=== PATIENT | male | born 1960 | race Caucasian/White ===

== ENCOUNTER 2018-02-13 19:10 | Emergency (ER) | payer SELFPAY ==
[2018-02-13] MEDS ORDERED: TORAdol 30 mg Injection IM ONE (19:56)
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
[2018-02-13] MEDS ORDERED: TORAdol 30 mg Injection ONE (20:00)
[2018-02-13 20:58] VITALS: BP 165/106; PULSE 68; O2SAT 99
[2018-02-13] MEDS ORDERED: NORCO 5/325 MG PO ONE (21:47)
[2018-02-13] MEDS ORDERED: NORCO 5/325 MG ONE (21:51)
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
== END 2018-02-13 22:01 | disposition home or self-care (01) ==
LOC: ED 19:10
DX: R51 Headache (principal); M54.2 Cervicalgia; M54.5 Low back pain; V53.5XXA Driver of pick-up truck or van injured in collision with car, pick-up truck or van in traffic accident, initial encounter; Z79.899 Other long term (current) drug therapy; I10 Essential (primary) hypertension; E78.00 Pure hypercholesterolemia, unspecified
CPT/HCPCS: 70450; 72125; 72131; 73030; 96372; 99285; J1885; A9270-GY

== ENCOUNTER 2019-10-19 09:28 | Emergency (ER) | payer OTHER ==
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
[2019-10-19 10:26] LABS: Absolute Neutrophil Ct (ANC) 4.69 (1.4-6.9); BASOPHIL % 0.3 % (0.0-0.4); Basophil (Absolute #) 0.02 (0-0.4); Eosinophil % 8.1 % (0.00-5.0); Eosinophil (Absolute #) 0.61 (0-0.5); Hematocrit 41.8 % (42-50); Hemoglobin 14.4 gm/dl (12.5-18.0); Lymphocyte (Absolute #) 1.61 (1.0-4.6); Lymphocytes % 21.4 % (24.0-44.0); Mean Cell Volume 90.5 fl (78-100); Mean Corpuscular Hemoglobin 31.2 pg (26-32); Mean Corpuscular Hgb Concent. 34.4 g/dl (32-36); Mean Platelet Volume 9.6 fl (7.5-11.0); Monocyte (Absolute #) 0.61 (0.0-1.3); Monocytes % 8.1 % (0.0-12.0); Neutrophil % 62.1 % (36.0-66.0); Platelet Count 176 K/mm3 (150-450); Red Blood Count 4.62 M/mm3 (4.1-5.6); Red Cell Distribution Width 12.7 % (11.5-14.0); White Blood Count 7.5 K/mm3 (4.0-10.5)
[2019-10-19 10:30] LABS: ALBUMIN 4.3 g/dL (3.5-5.0); ALKALINE PHOSPHATASE 98 U/L (38-126); BLOOD UREA NITROGEN 18 mg/dL (9-20); CHLORIDE 104 mmol/L (98-107); Calcium 9.6 mg/dL (8.4-10.2); Carbon Dioxide 29 mmol/L (22-30); Creatinine 1 1.01 mg/dL (0.66-1.25); Glucose 105 mg/dL (74-106); Potassium 4.9 mmol/L (3.5-5.1); SGOT/AST 22 U/L (17-59); SGPT/ALT 18 U/L (0-50); SODIUM 138 mmol/L (137-145); Total Protein 7.7 g/dL (6.3-8.2)
[2019-10-19 10:48] VITALS: BP 145/98; O2SAT 100
[2019-10-19 11:02] VITALS: PULSE 76
--- NOTE | 2019-10-19 19:55 | XRAY ---
Indication: Cough and sore throat. Comparison: December 23, 2018. Portable chest again demonstrates normal heart and lungs with incidental calcified granulomas. Bony thorax intact again with mild degenerative changes. No new/acute findings.
== END 2019-10-19 10:59 | disposition home or self-care (01) ==
LOC: ED 09:28
DX: R05 Cough (principal); J02.8 Acute pharyngitis due to other specified organisms; U07.1 COVID-19
CPT/HCPCS: 36415; 71045; 80053; 85025; 99284; U0003

== ENCOUNTER 2022-06-07 17:23 | Emergency (ER) | payer OTHER ==
--- NOTE | 2022-06-07 18:37 | ERPHSYRPT ---
- History of Present Illness Time Seen by Provider: 06/07/22 18:47 Source: patient Exam Limitations: no limitations Patient Subjective Stated Complaint: PT states "I slipped on the steps and slid down 3 stairs. My back on the right side hurts and my right forearm." Triage Nursing Assessment: Pt presented alert and oriented X 3, skin pwd. Pt ambulates with an upright steady gait, able to speak in clear full sentences. Pt has bruising, swelling, and abraison noted to right forerm, abrasion noted to back of right shoulder down to lower ribs on right side, tenderness noted. Physician History: Patient is a 62-year-old male presents to our ED for evaluation status post slip and fall. Patient was descending 3 metal steps. Patient slipped and fell onto his back. Patient complains of pain at both forearms and right ribs. Injury occurred prior to arrival. No neck pain. Cervical spine cleared clinically. No BHT or LOC. Fall was mechanical. Fall was not associated with any neuro cardiovascular symptomology. No associated chest pain or shortness of breath. No nausea vomiting or diaphoresis. No numbness tingling or weakness. Patient's pain is mild to moderate in intensity. Patient declined pain medication. Patient's significant other at bedside. They voiced no other complaints or concerns at this time. Portions of this note were created with voice recognition technology. There may be grammatical, spelling, punctuation or sound alike errors Timing/Duration: today Severity: moderate Modifying Factors: Improves With: movement Associated Symptoms: denies symptoms Allergies/Adverse Reactions: No Known Drug Allergies Allergy (Verified 10/19/19 09:31) Home Medications: Amlodipine Besylate 5 mg [Norvasc 5 mg] 1 tab PO DAILY 02/13/18 [History] Atorvastatin Calcium 40 mg PO DAILY 02/13/18 [History] Triamterene/Hydrochlorothiazid [Triamterene-Hctz 37.5-25 mg Tb] 1 tab PO DAILY 02/13/18 [History] Hx Tetanus, Diphtheria Vaccination/Date Given: No Hx Influenza Vaccination/Date Given: No Hx Pneumococcal Vaccination/Date Given: No Immunizations Up to Date: No Travel Risk - International Travel Have you traveled outside of the country in past 3 weeks: No - Coronavirus Screening Are you exhibiting any of the following symptoms?: No Close contact with a COVID-19 positive Pt in past 14-21 Days: No - Vaccine Status Have you recieved a Covid-19 vaccination: No - Review of Systems Constitutional: No Symptoms, No Fever, No Chills Eyes: No Symptoms Ears, Nose, & Throat: No Symptoms Respiratory: No Symptoms, No Cough, No Dyspnea Cardiac: No Symptoms, No Chest Pain, No Edema, No Syncope Abdominal/Gastrointestinal: No Symptoms, No Abdominal Pain, No Nausea, No Vomiting, No Diarrhea Genitourinary Symptoms: No Symptoms, No Dysuria Musculoskeletal: No Symptoms, No Back Pain, No Neck Pain Skin: No Symptoms, No Rash Neurological: No Symptoms, No Dizziness, No Focal Weakness, No Sensory Changes Psychological: No Symptoms Endocrine: No Symptoms Hematologic/Lymphatic: No Symptoms Immunological/Allergic: No Symptoms All Other Systems: Reviewed and Negative - Past Medical History Pertinent Past Medical History: Yes Neurological History: No Pertinent History ENT History: No Pertinent History Cardiac History: No Pertinent History, High Cholesterol, Hypertension Respiratory History: No Pertinent History Endocrine Medical History: No Pertinent History Musculoskeletal History: No Pertinent History GI Medical History: Hernia History: No Pertinent History Psycho-Social History: No Pertinent History Male Reproductive Disorders: No Pertinent History Other Medical History: Fx to 3rd and 4th lumbar - Past Surgical History Past Surgical History: Yes Neuro Surgical History: No Pertinent History Cardiac: No Pertinent History Respiratory: No Pertinent History Gastrointestinal: No Pertinent History Genitourinary: No Pertinent History Musculoskeletal: Orthopedic Surgery Male Surgical History: No Pertinent History Other Surgical History: left elbow, roselyn knee surgery - Social History Smoking Status: Never smoker Exposure to second hand smoke: No Drug Use: none Patient Lives Alone: No - Nursing Vital Signs Nursing Vital Signs: Initial Vital Signs Temperature 98.6 F 06/07/22 17:28 Pulse Rate 66 06/07/22 17:28 Respiratory Rate 20 06/07/22 17:28 Blood Pressure 172/104 06/07/22 17:28 O2 Sat by Pulse Oximetry 99 06/07/22 17:28 Pain Scale Pain Intensity 4 - Physical Exam General Appearance: no apparent distress, alert Eye Exam: PERRL/EOMI, eyes nml inspection Ears, Nose, Throat Exam: normal ENT inspection, TMs normal, pharynx normal, moist mucous membranes Neck Exam: normal inspection, non-tender, supple, full range of motion Respiratory Exam: normal breath sounds, lungs clear, No respiratory distress Cardiovascular Exam: regular rate/rhythm, normal heart sounds, normal peripheral pulses Gastrointestinal/Abdomen Exam: soft, normal bowel sounds, No tenderness, No mass Back Exam: normal inspection, normal range of motion, No CVA tenderness, No vertebral tenderness Extremity Exam: normal inspection, normal range of motion, pelvis stable Neurologic Exam: alert, oriented x 3, cooperative, normal mood/affect, nml cerebellar function, nml station & gait, sensation nml, No motor deficits Skin Exam: normal color, warm, dry, No rash Lymphatic Exam: No adenopathy SpO2 Interpretation: normal SpO2: 99 O2 Delivery: Room Air - Course Nursing assessment & vital signs reviewed: Yes - Radiology Exams Forearm X-ray Interpretation: Interpreted by me (No fracture dislocations.) Other X-ray Interpretation: Interpreted by me (Left forearm, no fracture dislocations. Soft tissue swelling) - CT Exams Chest CT Interpretation: Tele-radiologist Report (No comps. Minimal right base calcified pleural thickening. 5 mm hepatic cyst and old granulomatous disease otherwise normal chest. Also small hiatal hernia) Ordered Tests: Active Orders 24 hr Category Date Time Status CHEST WITHOUT CONTRAST [CT] Stat Exams 06/07/22 17:49 Taken FOREARM Stat Exams 06/07/22 17:50 Taken FOREARM Stat Exams 06/07/22 17:50 Taken - Progress Progress: improved Progress Note: 8-year-old male with mechanical fall. Physical exam revealed soft tissue swelling bilateral forearms. X-rays of both forearms negative for fracture. No dislocations. CT chest negative for rib fracture. Patient declined pain medication. Patient reassessed. Vital stable. Will discharge home. Patient agrees to follow-up with his primary care doctor within 48 hours for reevaluation. Portions of this note were created with voice recognition technology. There may be grammatical, spelling, punctuation or sound alike errors Complexity of problem addressed is low. Acute uncomplicated. No critical care time. Patient received 2 x-rays and a CT scan of chest. Patient served as independent historian. Patient's significant other at bedside. Patient's significant other contributed to HPI. Complexity of data reviewed and analyzed is moderate. X-rays independently reviewed by Dr. Way. Risk of complication and or risk morbidity/mortality of patient management is minimal. Patient declined pain medication. Patient will be discharged home. Plan of care discussed with patient. Plan of care established via shared decision making model. Vital stable. No social determinants of health complica ting patient's follow-up. Patient/significant other voiced no other complaints or concerns at this time. Portions of this note were created with voice recognition technology. There may be grammatical, spelling, punctuation or sound alike errors 06/07/22 19:26 Counseled pt/family regarding: diagnosis, need for follow-up, rad results - Departure Departure Disposition: Home Clinical Impression: Fall, Forearm contusion, Right lung base calcified pleural plaqui, 5 mm hepatic cyst, Old granulomatous disease, Small hiatal hernia Condition: Stable Critical Care Time: No Referrals: DOCTOR,NO FAMILY [Primary Care Provider] - Follow up/PCP as directed JEAN CLAUDE KAT MD [ACTIVE STAFF] - Follow up/PCP as directed Additional Instructions: Discharge/Care Plan LO GUERRA was seen on 06/07/22 in the Emergency Room. The patient was counseled regarding Diagnosis,Lab results, Imaging studies, need for follow up and when to return to the Emergency Room. Prescriptions given: Discharge Note I have spoken with the patient and/or caregivers. I have explained the patient's condition, diagnosis and treatment plan based on the information available to me at this time. I have answered the patient's and/or caregiver's questions and addressed any concerns. The patient and/or caregivers have as good understanding of the patient's diagnosis, condition and treatment plan as can be expected at this point. The vital signs have been stable. The patient's condition is stable and appropriate for discharge from the emergency department. The patient will pursue further outpatient evaluation with the primary care physician or other designated or consulting physician as outlined in the discharge instructions. The patient and/or caregivers are agreeable to this plan of care and follow-up instructions have been explained in detail. The patient and/or caregivers have received these instruction. The patient/and or caregivers are aware that any significant change in condition or worsening of symptoms should prompt an immediate return to this or the closest emergency department or call 911.
[2022-06-07 19:36] VITALS: BP 158/100; PULSE 65; O2SAT 98
--- NOTE | 2022-06-08 08:33 | XRAY ---
Indication: Right rib pain following fall. Multiple contiguous axial images obtained through the chest without contrast. Comparison: None Lungs demonstrates minimal bilateral dependent atelectasis, very minimal right posterior gutter calcified pleural plaquing and left lower lobe bullae. No suspicious pulmonary mass/nodule, infiltrate, effusion, or pneumothorax. Heart not enlarged. Aorta is normal in course and caliber. Small mediastinal and left hilar calcified nodes. No pathologic mediastinal lymphadenopathy. Small hiatal hernia. Bony thorax intact with mild degenerative changes throughout the spine. Limited upper abdomen demonstrates 5 mm hepatic cyst and previous cholecystectomy. Impression: 1. Chronic findings including left lower lobe bullae, right base calcified pleural plaquing, hiatal hernia, degenerative spondylosis, hepatic cyst, and old granulomatous disease. 2. Remaining CT chest without contrast exam is negative.
--- NOTE | 2022-06-08 08:43 | XRAY ---
Indication: Soft tissue swelling following fall. Comparison: None 2 view right forearm demonstrates mild proximal anterior medial soft tissue swelling. No other bony, articular, or soft tissue abnormalities.
--- NOTE | 2022-06-08 08:43 | XRAY ---
Indication: Soft tissue swelling following fall. Comparison: None 2 view left forearm demonstrates mild distal lateral soft tissue swelling. No other bony, articular, or soft tissue abnormalities.
== END 2022-06-07 19:36 | disposition home or self-care (01) ==
LOC: ED 17:23
DX: S50.12XA Contusion of left forearm, initial encounter (principal); S50.11XA Contusion of right forearm, initial encounter; W10.9XXA Fall (on) (from) unspecified stairs and steps, initial encounter; J92.9 Pleural plaque without asbestos; K76.89 Other specified diseases of liver; D71 Functional disorders of polymorphonuclear neutrophils; K44.9 Diaphragmatic hernia without obstruction or gangrene; R07.81 Pleurodynia; E78.5 Hyperlipidemia, unspecified; I10 Essential (primary) hypertension; Z79.899 Other long term (current) drug therapy; Z28.310 Unvaccinated for COVID-19
CPT/HCPCS: 71250; 73090; 99283

== ENCOUNTER 2024-05-27 16:22 | Emergency (ER) | payer OTHER ==
[2024-05-27 17:00] VITALS: TEMP 98.9
--- NOTE | 2024-05-27 17:06 | ERPHSYRPT ---
- History of Present Illness Time Seen by Provider: 05/27/24 17:04 Source: patient Exam Limitations: no limitations Patient Subjective Stated Complaint: pt states that he began to have pain to his left groin pain. pt states that the pain is where he had a hernia repair Triage Nursing Assessment: pt ambulated into the er; pt is axo x4; c/o left gr oin pain; pt states 8/10 pain to left groin that radiates to left testicle; no swelling present to left testicle; skin PDW; no respiratory distress present; hypertensive Physician History: 64-year-old male presents to our ED for evaluation of acute onset left lower quadrant pain. Patient reports the pain radiates into his left testicle. Pain started just prior to arrival. No history of kidney stones no trauma no fever no nausea no vomiting no blood in stool. Symptoms are moderate in intensity. Patient rates his pain 8 out of 10 at its worst. Patient requesting pain medication at this time. Significant other at bedside. They voiced no other complaints or concerns at this time. Timing/Duration: today Severity: moderate Modifying Factors: Improves With: nothing Associated Symptoms: denies symptoms Allergies/Adverse Reactions: No Known Drug Allergies Allergy (Verified 05/27/24 16:53) Home Medications: Ezetimibe 10 mg [Zetia 10 MG] 10 mg PO DAILY 05/27/24 [History] Hx Tetanus, Diphtheria Vaccination/Date Given: No Hx Influenza Vaccination/Date Given: No Hx Pneumococcal Vaccination/Date Given: No Travel Risk - International Travel Have you traveled outside of the country in past 3 weeks: No - Emerging Infectious Disease Are you exhibiting symptoms associated with any current EIDs: No - Review of Systems Constitutional: No Symptoms, No Fever, No Chills Eyes: No Symptoms Ears, Nose, & Throat: No Symptoms Respiratory: No Symptoms, No Cough, No Dyspnea Cardiac: No Symptoms, No Chest Pain, No Edema, No Syncope Abdominal/Gastrointestinal: No Symptoms, No Abdominal Pain, No Nausea, No Vomiting, No Diarrhea Genitourinary Symptoms: No Symptoms, No Dysuria Musculoskeletal: No Symptoms, No Back Pain, No Neck Pain Skin: No Symptoms, No Rash Neurological: No Symptoms, No Dizziness, No Focal Weakness, No Sensory Changes Psychological: No Symptoms Endocrine: No Symptoms Hematologic/Lymphatic: No Symptoms Immunological/Allergic: No Symptoms All Other Systems: Reviewed and Negative - Past Medical History Pertinent Past Medical History: Yes Neurological History: No Pertinent History ENT History: No Pertinent History Cardiac History: No Pertinent History, High Cholesterol, Hypertension Respiratory History: No Pertinent History Endocrine Medical History: No Pertinent History Musculoskeletal History: No Pertinent History GI Medical History: Hernia History: No Pertinent History Psycho-Social History: No Pertinent History Male Reproductive Disorders: No Pertinent History Other Medical History: Fx to 3rd and 4th lumbar - Past Surgical History Past Surgical History: Yes Neuro Surgical History: No Pertinent History Cardiac: No Pertinent History Respiratory: No Pertinent History Gastrointestinal: No Pertinent History Genitourinary: No Pertinent History Musculoskeletal: Orthopedic Surgery Male Surgical History: No Pertinent History Other Surgical History: left elbow, roselyn knee surgery - Social History Smoking Status: Never smoker Exposure to second hand smoke: No Drug Use: none - Social Determinants of Health Will the patient participate in the screening: Yes Do you worry about a steady place to live?: No Do you have any problems with any of the following?: No known problems In the past 12 months,have you had to go without utilities?: No Transportation Issues: No Has anyone in your support network made you feel unsafe?: No Have you or anyone in your house had to go w/o enough food: No - Nursing Vital Signs Nursing Vital Signs: Initial Vital Signs Temperature 98.9 F 05/27/24 16:54 Pulse Rate 82 05/27/24 16:54 Respiratory Rate 18 05/27/24 16:54 Blood Pressure 176/109 05/27/24 16:54 O2 Sat by Pulse Oximetry 99 05/27/24 16:54 Pain Scale Pain Intensity 5 - Physical Exam General Appearance: no apparent distress, alert Eye Exam: PERRL/EOMI, eyes nml inspection Ears, Nose, Throat Exam: normal ENT inspection, TMs normal, moist mucous membran es Neck Exam: normal inspection, full range of motion Respiratory Exam: normal breath sounds, lungs clear, No respiratory distress Cardiovascular Exam: regular rate/rhythm, normal heart sounds, normal peripheral pulses Gastrointestinal/Abdomen Exam: soft, normal bowel sounds, other (Tenderness to palpation left lower quadrant.), No tenderness, No mass Back Exam: normal inspection, normal range of motion, No CVA tenderness, No vertebral tenderness Extremity Exam: normal inspection, normal range of motion, pelvis stable Neurologic Exam: alert, oriented x 3, cooperative, normal mood/affect, nml cerebellar function, nml station & gait, sensation nml, No motor deficits Skin Exam: normal color, warm, dry, No rash Lymphatic Exam: No adenopathy SpO2 Interpretation: normal SpO2: 99 O2 Delivery: Room Air - Course Nursing assessment & vital signs reviewed: Yes - Radiology Ultrasound Exam Scrotal Ultrasound: tele radiology report (Bilateral hydrocele. No obvious hernia seen with Valsalva.) Ordered Tests: Active Orders 24 hr Category Date Time Status IV Insertion STAT Care 05/27/24 17:02 Active ABDOMEN AND PELVIS W/0 CONTRAS [CT] Stat Exams 05/27/24 17:03 Taken TESTICLE [US] Stat Exams 05/27/24 17:04 Taken CBC W DIFF Stat Lab 05/27/24 17:30 Completed CMP Stat Lab 05/27/24 17:30 Completed TROPONIN Q4H Lab 05/27/24 17:30 Completed TROPONIN Q4H Lab 05/27/24 21:15 Ordered TROPONIN Q4H Lab 05/28/24 01:15 Ordered UA W/RFX UR CULTURE Stat Lab 05/27/24 17:30 Completed Medication Summary Generic Name Dose Route Start Last Admin Trade Name Freq PRN Reason Stop Dose Admin Levofloxacin/Dextrose 500 mg in 100 mls @ 100 mls/hr 05/27/24 19:07 Levofloxacin 500mg/100ml D5w IV 05/27/24 20:06 STAT STA Metronidazole 500 mg in 100 mls @ 200 mls/hr 05/27/24 19:07 Flagyl 500 Mg Ivpb IV 05/27/24 19:36 STAT STA Discontinued Medications Generic Name Dose Route Start Last Admin Trade Name Freq PRN Reason Stop Dose Admin Sodium Chloride 1,000 mls @ 999 mls/hr 05/27/24 17:02 05/27/24 18:44 Sodium Chloride 0.9% 1000 Ml IV 05/27/24 18:02 Infused .Q1H1M STA Infusion Sodium Chloride Confirm 05/27/24 17:35 Sodium Chloride 0.9% 1000 Ml Administered 05/27/24 17:36 Dose 1,000 mls @ ud .ROUTE .STK-MED ONE Ketorolac Tromethamine 30 mg 05/27/24 17:02 05/27/24 17:38 Ketorolac Tromethamine 30 Mg/Ml Inj IV 05/27/24 17:03 30 mg STAT ONE Administration Ketorolac Tromethamine Confirm 05/27/24 17:35 Ketorolac Tromethamine 30 Mg/Ml Inj Administered 05/27/24 17:36 Dose 30 mg .ROUTE .STK-MED ONE Lab/Rad Data: Laboratory Result Diagrams 05/27/24 17:30 05/27/24 17:30 Laboratory Results 05/27/24 05/27/24 05/27/24 Range/Units 17:30 17:30 17:30 WBC 11.5 H (4.23-9.07) x10^3/uL RBC 4.66 (4.63-6.08) x10^6/uL Hgb 14.4 (13.7-17.5) g/dL Hct 40.3 (40.1-51.0) % MCV 86.5 (79.0-92.2) fL MCH 30.9 (25.7-32.2) pg MCHC 35.7 (32.3-36.5) g/dL RDW 11.9 (11.6-14.4) % Plt Count 209 (163-337) x10^3/uL MPV 9.3 L (9.4-12.4) fL Gran % 77.9 H (34.0-67.9) % Immature Gran % (Auto) 0.4 (0.001-0.429) % Nucleat RBC Rel Count 0.0 (0.00-0.2) % Eos # (Auto) 0.10 (0.04-0.54) x10^3/uL Immature Gran # (Auto) 0.05 H (0.001-0.031) x10^3u/L Absolute Lymphs (auto) 1.60 (1.32-3.57) x10^3/uL Absolute Monos (auto) 0.76 (0.30-0.82) x10^3/uL Absolute Nucleated RBC 0.00 (0.00-0.012) x10^3u/L Lymphocytes % 13.9 L (21.8-53.1) % Monocytes % 6.6 (5.3-12.2) % Eosinophils % 0.9 (0.8-7.0) % Basophils % 0.3 (0.2-1.2) % Absolute Granulocytes 8.95 H (1.78-5.38) x10^3/uL Basophils # 0.03 (0.01-0.08) x10^3/uL Sodium 138 (135-145) mmol/L Potassium 4.6 (3.5-5.1) mmol/L Chloride 103 (98-107) mmol/L Carbon Dioxide 24 (22-30) mmol/L Anion Gap 16.1 H (5-15) MEQ/L BUN 19 (9-20) mg/dL Creatinine 0.92 (0.66-1.25) mg/dL Estimated GFR 94.1 ML/MIN Glucose 91 (74-106) mg/dL Calcium 9.4 (8.4-10.2) mg/dL Total Bilirubin 1.20 (0.2-1.3) mg/dL AST 31 (17-59) U/L ALT 22 (0-50) U/L Alkaline Phosphatase 81 (38-126) U/L Troponin I < 0.012 (0.000-0.033) ng/mL Serum Total Protein 7.7 (6.3-8.2) g/dL Albumin 4.7 (3.5-5.0) g/dL Urine Color (Yellow) Urine Appearance (Clear) Urine pH (4.6-8.0) Ur Specific [place] (1.005-1.030) Urine Protein (Negative) Urine Glucose (UA) (Negative) mg/dL Urine Ketones (Negative) Urine Blood (Negative) Urine Nitrite (Negative) Urine Bilirubin (Negative) Urine Urobilinogen (0.2) mg/dL Ur Leukocyte Esterase (Negative) U Hyaline Cast (Auto) (0-2) /LPF Urine Microscopic RBC (0-5) /HPF Urine Microscopic WBC (0-5) /HPF Ur Epithelial Cells (None Seen) /HPF Urine Bacteria (None Seen) /HPF Urine Culture Reflexed (NO) 05/27/24 Range/Units 17:30 WBC (4.23-9.07) x10^3/uL RBC (4.63-6.08) x10^6/uL Hgb (13.7-17.5) g/dL Hct (40.1-51.0) % MCV (79.0-92.2) fL MCH (25.7-32.2) pg MCHC (32.3-36.5) g/dL RDW (11.6-14.4) % Plt Count (163-337) x10^3/uL MPV (9.4-12.4) fL Gran % (34.0-67.9) % Immature Gran % (Auto) (0.001-0.429) % Nucleat RBC Rel Count (0.00-0.2) % Eos # (Auto) (0.04-0.54) x10^3/uL Immature Gran # (Auto) (0.001-0.031) x10^3u/L Absolute Lymphs (auto) (1.32-3.57) x10^3/uL Absolute Monos (auto) (0.30-0.82) x10^3/uL Absolute Nucleated RBC (0.00-0.012) x10^3u/L Lymphocytes % (21.8-53.1) % Monocytes % (5.3-12.2) % Eosinophils % (0.8-7.0) % Basophils % (0.2-1.2) % Absolute Granulocytes (1.78-5.38) x10^3/uL Basophils # (0.01-0.08) x10^3/uL Sodium (135-145) mmol/L Potassium (3.5-5.1) mmol/L Chloride (98-107) mmol/L Carbon Dioxide (22-30) mmol/L Anion Gap (5-15) MEQ/L BUN (9-20) mg/dL Creatinine (0.66-1.25) mg/dL Estimated GFR ML/MIN Glucose (74-106) mg/dL Calcium (8.4-10.2) mg/dL Total Bilirubin (0.2-1.3) mg/dL AST (17-59) U/L ALT (0-50) U/L Alkaline Phosphatase (38-126) U/L Troponin I (0.000-0.033) ng/mL Serum Total Protein (6.3-8.2) g/dL Albumin (3.5-5.0) g/dL Urine Color Yellow (Yellow) Urine Appearance Clear (Clear) Urine pH 5.5 (4.6-8.0) Ur Specific [place] 1.025 (1.005-1.030) Urine Protein Negative (Negative) Urine Glucose (UA) Negative (Negative) mg/dL Urine Ketones Trace A (Negative) Urine Blood Moderate A (Negative) Urine Nitrite Negative (Negative) Urine Bilirubin Negative (Negative) Urine Urobilinogen 1.0 A (0.2) mg/dL Ur Leukocyte Esterase Negative (Negative) U Hyaline Cast (Auto) NONE SEEN (0-2) /LPF Urine Microscopic RBC 6-10 A (0-5) /HPF Urine Microscopic WBC 0-2 (0-5) /HPF Ur Epithelial Cells None Seen (None Seen) /HPF Urine Bacteria None Seen (None Seen) /HPF Urine Culture Reflexed NO (NO) - Progress Progress: improved Progress Note: 64-year-old male presents to our ED for evaluation of left lower quadrant pain. Physical exam reveals tenderness to the left lower quadrant. Patient also complained of pain to his left testicle. Ultrasound left testicle reveals hy drocele bilaterally. CT abdomen pelvis reveals a mild diverticulitis. Patient received a dose of Levaquin and Flagyl in our ED. Patient declined hospitalization. Patient preferred outpatient management. A prescription for Cipro and Flagyl forwarded to patient's pharmacy. Patient agrees to follow-up with his primary care doctor within 48 hours for reevaluation. Portions of this note were created with voice recognition technology. There may be grammatical, spelling, punctuation or sound alike errors 05/27/24 19:13 Complexity of problem addressed is moderate acute complicated no critical care time. Complex of data reviewed and analyzed is moderate. Test ordered test reviewed results analyzed and correlated clinically with history and physical exam. Risk of complication and or risk of morbidity/mortality of patient management is moderate. A prescription for Cipro Flagyl Curtis and Toradol forwarded to patient's pharmacy. Vital stable. Time spent to discharge patient is approximately 15 minutes. Plan of care established for shared decision making. No social determinants of health present to impede follow-up. Portions of this note were created with voice recognition technology. There may be grammatical, spelling, punctuation or sound alike errors 05/27/24 19:18 Counseled pt/family regarding: lab results, diagnosis, need for follow-up, rad results - Departure Departure Disposition: Home Clinical Impression: Hydrocele, Diverticulitis, Hematuria Condition: Stable Critical Care Time: No Referrals: ARMIN WEBB MD [Primary Care Provider] - Follow up/PCP as directed Additional Instructions: Discharge/Care Plan LO GUERRA was seen on 05/27/24 in the Emergency Room. The patient was counseled regarding Diagnosis,Lab results, Imaging studies, need for follow up and when to return to the Emergency Room. Prescriptions given: Discharge Note I have spoken with the patient and/or caregivers. I have explained the patient's condition, diagnosis and treatment plan based on the information available to me at this time. I have answered the patient's and/or caregiver's questions and addressed any concerns. The patient and/or caregivers have as good understanding of the patient's diagnosis, condition and treatment plan as can be expected at this point. The vital signs have been stable. The patient's condition is stable and appropriate for discharge from the emergency department. The patient will pursue further outpatient evaluation with the primary care physician or other designated or consulting physician as outlined in the discha rge instructions. The patient and/or caregivers are agreeable to this plan of care and follow-up instructions have been explained in detail. The patient and/or caregivers have received these instruction. The patient/and or caregivers are aware that any significant change in condition or worsening of symptoms should prompt an immediate return to this or the closest emergency department or call 911. Prescriptions: Hydrocodone/APAP 5/325 [Curtis 5/325 mg] 1 each PO Q6H PRN PRN #10 tablet MDD 4 PRN Reason: Pain Ciprofloxacin [Cipro 500 MG] 500 mg PO BID 7 Days #14 tablet Metronidazole 500 mg [Flagyl 500 MG] 500 mg PO TID 7 Days #21 tablet Ketorolac Trometh 10 mg Tab [TORAdol 10 MG TABLET] 10 mg PO TID 5 Days #15 tablet
[2024-05-27 17:34] LABS: Absolute Neutrophil Ct (ANC) 8.95 x10^3/uL (1.78-5.38); BASOPHIL % 0.3 % (0.2-1.2); Basophil (Absolute #) 0.03 x10^3/uL (0.01-0.08); Eosinophil % 0.9 % (0.8-7.0); Hematocrit 40.3 % (40.1-51.0); Hemoglobin 14.4 g/dL (13.7-17.5); IMMATURE GRAN # 0.05 x10^3u/L (0.001-0.031); IMMATURE GRAN % 0.4 % (0.001-0.429); Lymphocytes % 13.9 % (21.8-53.1); Mean Cell Volume 86.5 fL (79.0-92.2); Mean Corpuscular Hemoglobin 30.9 pg (25.7-32.2); Mean Corpuscular Hgb Concent. 35.7 g/dL (32.3-36.5); Mean Platelet Volume 9.3 fL (9.4-12.4); Monocyte (Absolute #) 0.76 x10^3/uL (0.30-0.82); Monocytes % 6.6 % (5.3-12.2); Neutrophil % 77.9 % (34.0-67.9); Platelet Count 209 x10^3/uL (163-337); Red Blood Count 4.66 x10^6/uL (4.63-6.08); Red Cell Distribution Width 11.9 % (11.6-14.4); White Blood Count 11.5 x10^3/uL (4.23-9.07)
[2024-05-27] MEDS ORDERED: TORAdol 30 mg Injection ONE (17:35)
[2024-05-27] MEDS ORDERED: Sodium Chloride 0.9% 1000 ML 1,000 ML ONE (17:35)
[2024-05-27] MEDS: Sodium Chloride 0.9% 1000 ML 1,000 ML IV STA (17:38)
[2024-05-27] MEDS: TORAdol 30 mg Injection IV ONE (17:38)
[2024-05-27 17:42] LABS: Appearance Clear (Clear); Bacteria None Seen /HPF (None Seen); Bilirubin Negative (Negative); Blood Moderate (Negative); Epithelial Cells None Seen /HPF (None Seen); Glucose, Urine Negative (Negative); Hyaline Casts NONE SEEN /LPF (0-2); Ketones Trace (Negative); Leukocyte Esterase Negative (Negative); Nitrite Negative (Negative); Ph 5.5 (4.6-8.0); Protein,Urine Dip Negative (Negative); Specific Gravity 1.025 (1.005-1.030); WBC 0-2 /HPF (0-5)
[2024-05-27 17:47] LABS: ALBUMIN 4.7 g/dL (3.5-5.0); ANION GAP 16.1 MEQ/L (5-15); BILIRUBIN,TOTAL 1.2 mg/dL (0.2-1.3); Calcium 9.4 mg/dL (8.4-10.2); Creatinine 1 0.92 mg/dL (0.66-1.25); EST GLOMERULAR FILTRATION RATE 94.1 ML/MIN; Potassium 4.6 mmol/L (3.5-5.1); Total Protein 7.7 g/dL (6.3-8.2)
[2024-05-27] MEDS ORDERED: FLAGYL 500 MG IVPB 500 MG/100 ML BAG IV ONE (19:11)
[2024-05-27] MEDS: FLAGYL 500 MG IVPB 500 MG/100 ML BAG IV STA (19:12)
[2024-05-27] MEDS ORDERED: Levofloxacin 500MG/100ML D5W 500 MG/100 ML BAG IV ONE (19:55)
[2024-05-27] MEDS: Levofloxacin 500MG/100ML D5W 500 MG/100 ML BAG IV STA (19:56)
[2024-05-27 20:54] VITALS: PULSE 79; O2SAT 99
[2024-05-27 21:02] VITALS: BP 146/92; RESP 16
--- NOTE | 2024-05-28 08:43 | XRAY ---
Indication: Left lower quadrant pain. Multiple contiguous axial images obtained through the abdomen and pelvis without contrast. Comparison: April 10, 2014. Lung bases demonstrate minimal dependent atelectasis. No infiltrate or effusion. Heart not enlarged. New small hiatal hernia. Noncontrasted stomach and bowel loops appear nonobstructed with normal appendix. There is now mild scattered descending and sigmoid diverticulosis. Junction descending and sigmoid colon demonstrates new bowel wall thickening and pericolonic stranding favoring diverticulitis. Tiny free fluid but no walled off fluid collection or free air. Interval cholecystectomy. Stable small left renal exophytic cyst. Remaining liver, pancreas, spleen, adrenal glands, kidneys, ureters, bladder, and aorta are unremarkable for noncontrast exam. Osseous structures intact again with minimal/mild degenerative changes throughout spine again greatest at lumbosacral junction. Impression: 1. New scattered colonic diverticulosis with new focus of acute diverticulitis junction descending and sigmoid. Tiny reactive free fluid. 2. New small hiatal hernia. 3. Again incidental small left renal cyst and degenerative spondylosis.
--- NOTE | 2024-05-28 08:45 | XRAY ---
Indication: Pain. Two-dimensional testicular sonogram performed. Comparison: None Both testicles homogeneous in echogenicity with normal color flow. Right testicle measures 4.1 x 2.7 x 4.5 cm and left measures 4.3 x 2.6 x 3.3 cm. Left and right epididymis bilaterally symmetric. Small nonspecific bilateral hydroceles. No suspicious extratesticular mass. Impression: Small nonspecific bilateral hydroceles. Remaining testicular sonogram is negative. Comment: Preliminary report was given.
== END 2024-05-27 21:02 | disposition home or self-care (01) ==
LOC: ED 16:22
DX: N43.3 Hydrocele, unspecified (principal); K57.92 Diverticulitis of intestine, part unspecified, without perforation or abscess without bleeding; R31.9 Hematuria, unspecified; R10.32 Left lower quadrant pain; N50.812 Left testicular pain; E78.5 Hyperlipidemia, unspecified; I10 Essential (primary) hypertension; Z79.891 Long term (current) use of opiate analgesic; Z79.899 Other long term (current) drug therapy
CPT/HCPCS: 36415; 74176; 76870; 80053; 81001; 84484; 85025; 96361; 96365; 96368; 96374; 96375; 99285; J1885; J1956

== ENCOUNTER 2024-12-24 05:49 | Day surgery (SDC) | payer OTHER ==
[2024-12-24] MEDS: Lactated Ringers 1,000 ML IV SCH (06:23)
[2024-12-24 06:25] VITALS: RESP 18
[2024-12-24] MEDS ORDERED: propofoL IV ONE (07:29)
[2024-12-24] MEDS ORDERED: Versed 2 MG/2 ML Injection ONE (07:29)
[2024-12-24 08:36] VITALS: BP 170/98; PULSE 52; TEMP 97; O2SAT 100
--- NOTE | 2024-12-25 11:14 | OP ---
SURGERY DATE/TIME: 12/24/2024 [id number] PREOPERATIVE DIAGNOSIS: Screening colonoscopy. POSTOPERATIVE DIAGNOSES: 1) Sigmoid colon polyp. 2) Diverticulosis. PROCEDURE: Colonoscopy. SURGEON: Francesco Denney MD. ANESTHESIA: MAC by Keo Salgado CRNA. ESTIMATED BLOOD LOSS: Minimal. SPECIMEN: Hot forceps polypectomy from the distal sigmoid colon. DESCRIPTION OF PROCEDURE AND FINDINGS: After informed written consent was obtained, the patient was taken to the endoscopy suite. He was placed in the left lateral decubitus position and anesthesia was titrated to desired level of consciousness. Digital rectal exam showed normal sphincter tone and no internal lesions. The scope was inserted into the rectum and sequentially the entire colonic mucosa was traversed. Level of the cecum was reached and verified with direct visualization of the ileocecal valve. Upon withdrawal, there were scattered diverticula throughout most of the colon. In the distal sigmoid colon at the level of the first valve of Josue which was at approximately 15 cm scope depth, there was a polypoid lesion which was flat and spread out on a fold, appeared polypoid on visualization. This area was grasped with a forceps, cauterized, and removed in piecemeal fashion along the broad spread out base with good hemostasis and what appeared to be good removal of the lesion. Prior to withdrawal, retroflexion showed no internal lesions. The scope was removed and the patient was transferred to the recovery room in good condition. He will follow up in a week for pathology report.
== END 2024-12-24 08:49 | disposition home or self-care (01) ==
LOC: SDC 05:49
PROVIDERS: ATTEND Family Medicine
DX: Z12.11 Encounter for screening for malignant neoplasm of colon (principal); K63.5 Polyp of colon; K57.30 Diverticulosis of large intestine without perforation or abscess without bleeding